=== PATIENT | female | born 2000 | race African-American/Black ===

== ENCOUNTER 2020-03-16 22:25 | Inpatient (IN) ==
[2020-03-16] MEDS ORDERED: PIPERACILLIN/TAZOBACTAM 3,375 MG in SODIUM CHLORIDE 0.9% 100 ML IV STA (23:16)
[2020-03-16] MEDS ORDERED: ALBUTEROL/IPRATROPIUM 3 ML NEB RESP TX STA (23:16)
[2020-03-16] MEDS ORDERED: ONDANSETRON 4 MG/2 ML VIAL IV STA (23:16)
[2020-03-16] MEDS ORDERED: methylPREDNISolone SOD SUC 125 MG/2 ML VIAL IV STA (23:16)
[2020-03-17 02:02] LABS: Basophils % 0.2 % (0.0-0.8); Eosinophils % 0.2 % (0.00-10.9); Hematocrit 40.3 VOL% (35.7-47.0); Hemoglobin 11.8 GM/DL (12.0-16.0); Immature Granulocytes % 0.4 %; Immature Granulocytes Absolute 0.02 #; Lymphocytes # 2.3 10*3/uL (1.4-4.0); Lymphocytes % 45.8 % (21.3-54.2); Mean Corpuscular HGB Conc 29.3 GM/DL (32-36); Mean Platelet Volume 10.4 FL (9.6-12.0); Monocytes % 5.3 % (1.7-12.7); Neutrophils % 48.1 % (38.7-73.9); Platelet Count 274 T/CUMM (130-400); Red Blood Count 5.37 MC/CUMM (3.8-5.5); Red Cell Distribution Width 17.5 % (9.3-17.3); White Blood Count 4.9 T/CUMM (4-12)
[2020-03-17 02:06] LABS: Albumin 3.2 G/DL (3.4-5.0); Bilirubin,Total 0.4 MG/DL (0.2-1.0); Calcium 8.4 MG/DL (8.5-10.1); Ferritin 55.5 ng/ml (8-252); Osmolality,Calculated 272.7 MOS/KG (273-304); Total Protein 7.9 G/DL (6.4-8.3)
[2020-03-17 02:10] LABS: PT Patient Result 10.9 SECS (9.8-11.9)
[2020-03-17] MEDS ORDERED: DEXTROSE 50% 25 GM/50 ML SYRINGE IV PRN (05:13)
[2020-03-17] MEDS ORDERED: GLUCAGON 1 MG VIAL IM PRN (05:13)
[2020-03-17] MEDS ORDERED: ACETAMINOPHEN 325 MG TABLET PO PRN (05:13)
[2020-03-17] MEDS ORDERED: ONDANSETRON 4 MG/2 ML VIAL IV PRN (05:13)
[2020-03-17] MEDS ORDERED: ZALEPLON 5 MG CAPSULE PO PRN (05:13)
[2020-03-17] MEDS ORDERED: AZITHROMYCIN INJ 500 MG in SODIUM CHLORIDE 0.9% 250 ML IV SCH (05:30)
[2020-03-17 07:00] LABS: Apearance,Urine Slightly Hazy (Clear); Bacteria,Urine Occasional /HPF (Few); Bilirubin,Urine Negative (Negative); Blood, Urine Large mg/dL (Negative); Glucose,Urine (UA) Negative (Negative); Ketones,Urine 5 mg/dL (Negative); Mucus,Urine Few /LPF (Occasional); Nitrite,Urine Negative (Negative); Protein,Urine 30 MG/DL; RBC,Urine 132 /HPF (0-4); Squamous Epithelial Cell,Urine Occasional /HPF (0-10); Urine Color Amber (Yellow); Urine Specific Gravity 1.026 (1.001-1.035); WBC,Urine 29 /HPF (0-6)
[2020-03-17] MEDS ORDERED: DEXTROSE 10% 250 ML BAG IV PRN (07:30)
[2020-03-17 07:36] LABS: Band Neutrophils 3 % (0-10); Lymphocytes 44 % (20-55); Platelet Estimate Adequate; Segmented Neutrophils 45 % (50-85); Total Cells Counted 100
[2020-03-17] MEDS ORDERED: PIPERACILLIN/TAZOBACTAM 3,375 MG in SODIUM CHLORIDE 0.9% 100 ML IV SCH (09:00)
[2020-03-17] MEDS ORDERED: ZINC SULFATE 220 MG CAPSULE PO SCH (09:00)
[2020-03-17] MEDS: ENOXAPARIN 40 MG/0.4 ML SYRINGE SUBCUT SCH (09:39)
[2020-03-17] MEDS: HYDROXYCHLOROQUINE 200 MG TABLET PO SCH ×2 (09:40→20:16)
[2020-03-18 06:53] LABS: Basophils % 0.2 % (0.0-0.8); Eosinophils % 0.2 % (0.00-10.9); Hematocrit 38.3 VOL% (35.7-47.0); Immature Granulocytes % 0.5 %; Immature Granulocytes Absolute 0.02 #; Lymphocytes # 2.3 10*3/uL (1.4-4.0); Lymphocytes % 51.4 % (21.3-54.2); Mean Corpuscular HGB Conc 29.5 GM/DL (32-36); Mean Corpuscular Volume 73.8 FL (87-102); Mean Platelet Volume 10.6 FL (9.6-12.0); Monocytes % 10.7 % (1.7-12.7); Platelet Count 263 T/CUMM (130-400); Red Blood Count 5.19 MC/CUMM (3.8-5.5); Red Cell Distribution Width 17.3 % (9.3-17.3); White Blood Count 4.4 T/CUMM (4-12)
[2020-03-18 06:55] LABS: Hemoglobin 11.3 GM/DL (12.0-16.0)
[2020-03-18 06:56] LABS: Albumin 3.1 G/DL (3.4-5.0); Bilirubin,Total 0.7 MG/DL (0.2-1.0); Calcium 8.6 MG/DL (8.5-10.1); Osmolality,Calculated 280.3 MOS/KG (273-304); Total Protein 7.7 G/DL (6.4-8.3)
[2020-03-18 06:57] LABS: Band Neutrophils 1 % (0-10); Lymphocytes 46 % (20-55); Platelet Estimate Adequate; Segmented Neutrophils 42 % (50-85); Total Cells Counted 100
[2020-03-18 06:58] LABS: Hypochromasia 1+; Ovalocytes Slight
[2020-03-18] MEDS: ENOXAPARIN 40 MG/0.4 ML SYRINGE SUBCUT SCH (08:47)
[2020-03-18] MEDS ORDERED: AZITHROMYCIN 250 MG TABLET PO SCH (09:00)
[2020-03-18] MEDS ORDERED: HYDROXYCHLOROQUINE 200 MG TABLET PO SCH (09:00)
[2020-03-18 12:18] VITALS: BP 110/59
== END 2020-03-18 14:40 | disposition home or self-care (01) | DRG 177 ==
LOC: EDBD → EDUNIT# → N.ED 22:25 → N.EDINP 03-17 05:13 → N.2W 03-17 05:58
PROVIDERS: ADMIT Family Medicine; ATTEND Family Medicine